=== PATIENT | male | born 1995 | race Caucasian/White ===

== ENCOUNTER 2019-07-10 19:01 | Emergency (ER) | payer OTHER ==
[~2019-07-10] VITALS: Ht 177.8 cm; Wt 63.5 kg
[2019-07-10 19:13] VITALS: BP 134/84
[2019-07-10] MEDS ORDERED: PENICILLIN V P500 MG PO (19:41)
[2019-07-10] MEDS ORDERED: IBUPROFEN 600600 M1 PO (19:41)
[2019-07-10] MEDS ORDERED: ACETAMINOPHEN-1 EAC2 PO (19:41)
== END 2019-07-10 19:47 | disposition home or self-care (01) ==
LOC: M.ERS 19:01
DX: K02.9 Dental caries, unspecified (principal); K05.6 Periodontal disease, unspecified; F17.210 Nicotine dependence, cigarettes, uncomplicated

== ENCOUNTER 2020-12-10 21:07 | Emergency (ER) | payer OTHER ==
[~2020-12-10] VITALS: Ht 180.3 cm; Wt 61.2 kg
[~2020-12-10 21:07] MED LIST: ACETAMINOPHEN-1 EAC2 PO; IBUPROFEN 600600 M1 PO; PENICILLIN V P500 MG PO
[2020-12-10] MEDS ORDERED: BELBUCA150 MCG PO (21:16)
[2020-12-10 21:45] LABS: HEMATOCRIT 47.3 % (42.0-52.0); HEMOGLOBIN 16.8 gm/dL (14.0-18.0); MCH 30.5 pg (26.0-34.0); MCHC 35.6 g/dL (28.0-37.0); MCV 85.7 fL (80.0-100.0); MPV 7.8 fl. (7.2-11.1); RBC 5.51 mil/uL (4.50-6.00); RDW-CV 12.8 % (10.5-14.5); WBC 13.4 thou/uL (4.0-11.0)
[2020-12-10 21:54] LABS: CALCIUM 9.1 mg/dL (8.5-10.1); CREATININE 1.1 mg/dL (0.6-1.3); POTASSIUM 3.9 mmol/L (3.5-5.1)
[2020-12-10 22:10] LABS: ALBUMIN 4.4 g/dL (3.4-5.0); TOTAL BILIRUBIN 0.8 mg/dL (<0.1-1.0); TOTAL PROTEIN 8.5 g/dL (6.4-8.2)
[2020-12-10 22:50] VITALS: BP 128/81
--- NOTE | 2020-12-11 13:32 | EKG ---
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
== END 2020-12-10 22:51 | disposition home or self-care (01) ==
LOC: M.ERS 21:07
PROVIDERS: Personal Emergency Response Attendant
DX: F41.9 Anxiety disorder, unspecified (principal); R07.89 Other chest pain; F17.210 Nicotine dependence, cigarettes, uncomplicated

== ENCOUNTER 2020-12-11 10:52 | Emergency (ER) | payer OTHER ==
[~2020-12-11] VITALS: Ht 182.9 cm; Wt 61.2 kg
[~2020-12-11 10:52] MED LIST changes: +BELBUCA150 MCG PO
[2020-12-11 11:26] VITALS: BP 112/64
== END 2020-12-11 11:27 | disposition home or self-care (01) ==
LOC: M.ERS 10:52
DX: F11.23 Opioid dependence with withdrawal (principal); R07.89 Other chest pain; F17.210 Nicotine dependence, cigarettes, uncomplicated